=== PATIENT | male | born 1945 | race Caucasian/White ===

== ENCOUNTER → 2016-05-07 | Outpatient (CLI) | payer OTHER ==
[~2016-05-07] MED LIST: 5fu IV; ABRI IV; DOCU100C PO; GEMC1INJ IV; MULT-1027 PO; OMEP40CA41 PO; ONDA8TAB6 PO; OPTIRAY 320 IV PRN; OXYC-57 PO; RIVA1TAB4 PO; TRAMTAB5 PO; chemo IV.
--- NOTE | 2016-05-07 14:35 | DIAGNOSTIC IMAGING REPORT ---
CT OF THE ABDOMEN AND PELVIS WITH CONTRAST CLINICAL HISTORY: Pancreatic cancer. Restaging CT status post chemotherapy. COMPARISON STUDY: CT of the abdomen January 22, 2016 and MRI of the abdomen January 25, 2016. TECHNIQUE: Following IV administration of 119 mL of Optiray-320, axial images of the abdomen and pelvis were obtained from the lung bases to the proximal femurs. Images were reviewed in the axial, sagittal, and coronal planes. IV contrast was administered without complication. Oral contrast was administered. CT DOSE: 413.80 mGycm FINDINGS: Lung bases are clear. There is suspected fatty infiltration of the liver. The hepatic lesions shown on prior CT and MRI are not evident on this exam. There are calcified granulomas within the spleen. The adrenal glands are unremarkable. No biliary or pancreatic ductal dilatation is identified. Gallbladder wall thickening is a nonspecific finding. The size of the previously described mass within the pancreatic head extending into the pancreaticoduodenal groove is similar to prior exam. This mass measures approximately 3.6 x 2.9 cm. Multiple necrotic peripancreatic and leticia hepatis lymph nodes are similar to prior exam as well. A index peripancreatic node measures 2.9 x 2 cm. This lymphadenopathy abuts the superior mesenteric artery. The superior mesenteric vein and portal vein are patent. There may be mild narrowing of the main portal vein. The right and left portal veins are patent. No pelvic lymphadenopathy is present. There is sigmoid diverticulosis without evidence for acute diverticulitis. No suspicious osseous lesions are present. The prostate is moderately enlarged. The appendix is normal. No omental nodules are identified. IMPRESSION: 1. Findings suggestive of a partial treatment response. The previously described hepatic metastases are not evident on this exam consistent with a treatment response. The primary lesion within the pancreatic head and associated peripancreatic and leticia hepatis lymphadenopathy is similar to prior CT of January 22, 2016. No new sites of metastatic disease. 2. Mild gallbladder wall thickening, a nonspecific finding. Electronically signed by: Haris Stacy M.D. 05/07/2016 2:34 PM Dictated Date/Time: 05/07/2016 1:42 PM
== END | disposition home or self-care (01) ==
LOC: C.CTS 12:58
PROVIDERS: ATTEND Internal Medicine Hematology & Oncology
DX: C25.0 Malignant neoplasm of head of pancreas (principal)

== ENCOUNTER → 2016-05-21 | Outpatient (CLI) | payer OTHER ==
[~2016-05-21] MED LIST changes: +MAGNEVIST IV PRN; -OPTIRAY 320 IV PRN
--- NOTE | 2016-05-21 18:47 | DIAGNOSTIC IMAGING REPORT ---
ABDOMINAL MRI WITH AND WITHOUT INTRAVENOUS CONTRAST HISTORY: METASTATIC PANCREATIC CANCER TECHNIQUE: Multiplanar multisequence MRI of the abdomen was performed both before and after the intravenous administration of contrast per COMPARISON STUDY: Abdominal MRI 01/25/2016. Abdomen and pelvis CT 05/07/2016 FINDINGS: The necrotic peripancreatic lymph nodes have slightly increased in size. Dominant anterior peripancreatic lymph node measures 1.9 x 1.5 cm. This previous measured 1.7 x 1.1 cm. Dominant posterior peripancreatic lymph node measures 2.7 x 1.3 cm, previous measuring 2.3 x 1.4 cm. Pancreatic head mass has slightly decreased in size and currently measures 2.2 x 1.2 cm. This previous measured 2.6 x 2.1 cm. The main portal vein remains patent. Multiple hepatic lesions have decreased in size and number compared to the prior study. Dominant lesion within the right hepatic lobe on image 46 of 92 measures 7 mm, previous measuring 1 cm. The spleen and adrenal glands are unremarkable. Bilateral renal cysts are again noted. The gallbladder is unremarkable. Narrowing of the distal common bile duct and main pancreatic duct is again noted. This is likely due to combination of the pancreatic head mass and peripancreatic lymphadenopathy. Trace pericholecystic fluid which may be reactive. No gallstones identified. IMPRESSION: 1. Slight decrease in size in the pancreatic head mass. In addition, the metastatic hepatic lesions have decreased in size and number. 2. The peripancreatic necrotic lymphadenopathy has slightly increased in size. 3. Persistent narrowing of the distal common bile duct and distal main pancreatic duct. Electronically signed by: Kuldip Bradley M.D. 05/21/2016 6:46 PM Dictated Date/Time: 05/21/2016 6:31 PM
== END | disposition home or self-care (01) ==
LOC: C.MRI 17:41
PROVIDERS: ATTEND Internal Medicine Hematology & Oncology
DX: C25.9 Malignant neoplasm of pancreas, unspecified (principal)

== ENCOUNTER → 2016-08-19 | Outpatient (CLI) | payer OTHER ==
[~2016-08-19] MED LIST changes: +BACL10TA PO; +CHOL20009 PO; +GADOXETATE DISODIUM (NON-WT BASED PROCEDURE) IV PRN; -MAGNEVIST IV PRN; +MIRT15TA PO; +MORP-157 PO; +PANCCAP2 PO; +PROC5TAB PO; +[UNRECOGNIZED DRUG - CODE] IV; +[UNRECOGNIZED DRUG - CODE] IV
--- NOTE | 2016-08-20 08:38 | DIAGNOSTIC IMAGING REPORT ---
MRI OF THE ABDOMEN WITH AND WITHOUT CONTRAST CLINICAL HISTORY: Metastatic pancreatic carcinoma. Elevated liver function tests and cancer markers. Chemotherapy. COMPARISON STUDY: MRI of the abdomen May 21, 2016. TECHNIQUE: Utilizing a 1.5 Palmira magnet and dedicated coil, multiplanar, multiecho imaging of the abdomen was performed pre and postcontrast administration. Post contrast imaging was performed utilizing dynamic enhancement. Injection of 10 cc of Eovist IV was uneventful. FINDINGS: The previously described hepatic metastases shown on exam of May 21, 2016 have decreased in conspicuity since prior exam. The largest is a 6 mm hypervascular lesion shown on axial image 45 of 92 of the arterial phase sequence. There has been interval development of moderate biliary ductal dilatation with abrupt cut off of the proximal common bile duct. This has developed since MRI of May 21, 2016. The ill-defined pancreatic mass is difficult to measure on this exam but measures approximately 2.8 x 2.4 x 1.4 cm. This is relatively similar to prior exam of May 21, 2016. Adjacent pathologic peripancreatic lymph nodes have slightly increased in size since prior exam and could account for biliary ductal dilatation. There is no pancreatic ductal dilatation. A few renal cysts are noted. The spleen and adrenal glands are unremarkable. The main, left and right portal veins remain patent. There is been interval development of mild narrowing of the proximal main portal vein. IMPRESSION: 1. Interval development of moderate biliary ductal dilatation with abrupt caliber change of the proximal common bile duct. Slight increase in peripancreatic pathologic lymphadenopathy which may result in the biliary obstruction. 2. No significant change in the primary pancreatic lesion within the pancreatic head and uncinate process. 3. Slight decrease in size of several hepatic metastases. 4. Mild gallbladder distention. 5. Mild extrinsic narrowing of the proximal main portal vein which remains patent. Electronically signed by: Haris Stacy M.D. 08/20/2016 8:37 AM Dictated Date/Time: 08/20/2016 8:10 AM
== END | disposition home or self-care (01) ==
LOC: C.MRI 18:36
PROVIDERS: ATTEND Internal Medicine Hematology & Oncology
DX: R10.9 Unspecified abdominal pain (principal); C25.0 Malignant neoplasm of head of pancreas; K40.90 Unilateral inguinal hernia, without obstruction or gangrene, not specified as recurrent

== ENCOUNTER 2016-08-23 05:38 | Day surgery (SDC) | payer OTHER ==
[2016-08-21 11:09] VITALS: BMI 21.0
[~2016-08-23] VITALS: Ht 165.1 cm; Wt 59.1 kg
[~2016-08-23 05:38] MED LIST changes: -5fu IV; -ABRI IV; -BACL10TA PO; -CHOL20009 PO; -GADOXETATE DISODIUM (NON-WT BASED PROCEDURE) IV PRN; -GEMC1INJ IV; -MIRT15TA PO; -MORP-157 PO; -MULT-1027 PO; -PANCCAP2 PO; -PROC5TAB PO; -TRAMTAB5 PO; -[UNRECOGNIZED DRUG - CODE] IV; -[UNRECOGNIZED DRUG - CODE] IV; -chemo IV.
[2016-08-23 06:00] VITALS: BP 139/85; PULSE 83; TEMP 36.2; O2SAT 98; Ht 165.1 cm; Wt 59.1 kg
[2016-08-23] MEDS ORDERED: LACTATED RINGER'S 1000ML 1,000 ML IV SCH (06:00)
[2016-08-23] MEDS ORDERED: chemo IV. (06:12)
[2016-08-23] MEDS ORDERED: MULT-1027 PO (06:12)
[2016-08-23] MEDS ORDERED: 5fu IV (06:13)
[2016-08-23 06:14] LABS: HEMATOCRIT 37.5 % (42-52); MEAN CELL VOLUME 97.4 fL (80-100); MEAN CORPUSCULAR HEMOGLOBIN 32.2 pg (25-34); MEAN PLATELET VOLUME 10.2 fL (7.4-10.4); PLATELET COUNT 399 K/uL (130-400); RED BLOOD COUNT 3.85 M/uL (4.7-6.1); WHITE BLOOD COUNT 20.84 K/uL (4.8-10.8)
[2016-08-23 06:26] LABS: MEAN CORPUSCULAR HGB CONC 33.1 g/dl (32-36)
[2016-08-23] MEDS ORDERED: GEMC1INJ IV (06:28)
[2016-08-23] MEDS ORDERED: ABRI IV (06:28)
[2016-08-23] MEDS ORDERED: ROCURONIUM BROMIDE 10 MG/ML 5 ML VIAL ONE (06:35)
[2016-08-23] MEDS ORDERED: SUCCINYLCHOLINE CHLORIDE 20 MG/ML 10 ML VIAL IV ONE (06:35)
[2016-08-23] MEDS ORDERED: ONDANSETRON INJ 2 MG/ML 2 ML VIAL ONE (06:35)
[2016-08-23] MEDS ORDERED: LIDOCAINE HCL 2% 2 ML VIAL (20MG/ML) ONE (06:35)
[2016-08-23] MEDS ORDERED: DEXAMETHASONE SOD INJ 4 MG/ML VIAL ONE (06:35)
[2016-08-23] MEDS ORDERED: FENTANYL CITRATE INJ 50 MCG/1 ML 2 ML VIAL ONE ×2 (06:35→08:10)
[2016-08-23] MEDS ORDERED: PROPOFOL IV EMULSION 10 MG/ML 20 ML VIAL IV ONE ×2 (06:35→07:58)
[2016-08-23 06:37] LABS: BASO % 0.9 %; BASO ABS # 0.19 K/uL (0-0.2); COMPLETE YES; EOS % 1.7 %; IG% 8.5 %; LYMPH ABS # 1.46 K/uL (1.2-3.4); MONO % 13.5 %; NEUT % 68.4 %
[2016-08-23] MEDS ORDERED: MIDAZOLAM HCL 1 MG/ML 2ML VIAL ONE (06:55)
--- NOTE | 2016-08-23 07:22 | Endo History and Physical ---
History & Physical Date of Service: August 23, 2016. Chief Complaint: abnormal MR imaging Referring Physician: Past Surgical History Hx Cardiac Surgery: No Hx Abdominal Surgery: No Hx Post-Op Nausea and Vomiting: No Hx Cancer Surgery: No Hx Thoracic Surgery: No Hx Orthopedic: No Hx Urinary Tract Surgery: No Social History Smoking Status: Never Smoker Hx Substance Use: No Hx Alcohol Use: No Allergies Coded Allergies: Capecitabine (Verified Allergy, Mild, RASH, 08/23/16) Uncoded Allergies: TETANUS (Allergy, Severe, partially paralyzed, 01/26/16) Current Medications Reported Home Medications Medications Dose Route/Sig Max Daily Dose Days Date Category Dose Instructions Abraxane (Paclitaxel Protein-Bound) 100 Mg/20 Ml Inj IV DIRECTED 08/23/16 Reported Gemcitabine (Gemcitabine Hcl) 1 Gm/26.3 Ml Inj IV DIRECTED 08/23/16 Reported [5fu] IV DIRECTED 08/23/16 Reported Multi Vitamin (Multiple Vitamin) 1 Tab Tab 1 Tab PO DAILY 08/23/16 Reported Stool Softener (Docusate Sodium) 100 Mg Cap 100 Mg PO DAILY PRN 08/21/16 Reported Zofran (Ondansetron HCl) 8 Mg Tab 8 Mg PO BID PRN 08/21/16 Reported Percocet 5MG/325MG (Oxycodone/Acetaminophen) Tab 1 Tablet PO Q6H PRN 08/21/16 Reported PAIN Xarelto (Rivaroxaban) 20 Mg Tab 20 Mg PO HS 08/21/16 Reported HOLD 08/20 Prilosec (Omeprazole) 40 Mg Cap 40 Mg PO BID 08/21/16 Reported Vital Signs Weight (Kilograms): 59.09 Height (Feet): 5 Height (Inches): 5 Date Time Temp Pulse Resp B/P Pulse Ox O2 Delivery O2 Flow Rate FiO2 08/23/16 06:00 36.2 83 18 139/85 98 Room Air Physical Exam AAOX3 nl s1s2 Lungs CTA Abd soft NT/ND + BS - CCE Assessment and Plan ERCP with stent placement
[2016-08-23] MEDS ORDERED: EpHEDrine SULFATE INJ 50 MG/ML AMP IV PRN (08:15)
[2016-08-23] MEDS ORDERED: ESMOLOL HCL 10 MG/ML 10 ML VIAL ONE (08:15)
[2016-08-23] MEDS ORDERED: FENTANYL CITRATE INJ 50 MCG/1 ML 2 ML VIAL IV PRN (08:15)
[2016-08-23] MEDS ORDERED: ATROPINE SULFATE 0.1 MG/ML 5ML SYR IV PRN (08:15)
[2016-08-23] MEDS ORDERED: HYDROmorphone INJ 1 MG/ML SYR IV PRN (08:15)
[2016-08-23] MEDS ORDERED: LABETALOL HCL IV 5 MG/ML 20ML IV PRN (08:15)
[2016-08-23] MEDS ORDERED: ONDANSETRON INJ 2 MG/ML 2 ML VIAL IV PRN (08:15)
[2016-08-23] MEDS ORDERED: MEPERIDINE HCL 25 MG/ML CARP IV PRN (08:15)
[2016-08-23] MEDS ORDERED: INDOMETHACIN 50 MG SUPP PR ONE (08:19)
[2016-08-23] MEDS ORDERED: CIPROFLOXACIN 400MG / 200ML D5W ONE (08:52)
--- NOTE | 2016-08-23 09:30 | Discharge Instructions ---
Endoscopy Patient Instructions Date / Procedure(s) Performed August 23, 2016. Allergy Information Coded Allergies: Tetanus Toxoid (Verified Allergy, Severe, PARTIALLY PARALYZED, 08/23/16) Capecitabine (Verified Allergy, Mild, RASH, 08/23/16) Discharge Date / Findings August 23, 2016. distal CBD stricture Medication Instructions Restart Stopped Medication(s): Reported Home Medications Medications Dose Route/Sig Max Daily Dose Days Date Category Dose Instructions Abraxane (Paclitaxel Protein-Bound) 100 Mg/20 Ml Inj IV DIRECTED 08/23/16 Reported Gemcitabine (Gemcitabine Hcl) 1 Gm/26.3 Ml Inj IV DIRECTED 08/23/16 Reported [5fu] IV DIRECTED 08/23/16 Reported Multi Vitamin (Multiple Vitamin) 1 Tab Tab 1 Tab PO DAILY 08/23/16 Reported Stool Softener (Docusate Sodium) 100 Mg Cap 100 Mg PO DAILY PRN 08/21/16 Reported Zofran (Ondansetron HCl) 8 Mg Tab 8 Mg PO BID PRN 08/21/16 Reported Percocet 5MG/325MG (Oxycodone/Acetaminophen) Tab 1 Tablet PO Q6H PRN 08/21/16 Reported PAIN Xarelto (Rivaroxaban) 20 Mg Tab 20 Mg PO HS 08/21/16 Reported HOLD 08/20 Prilosec (Omeprazole) 40 Mg Cap 40 Mg PO BID 08/21/16 Reported Cipro 500mg twice daily x 5 days Reported Home Medications Medications Dose Route/Sig Max Daily Dose Days Date Category Dose Instructions Abraxane (Paclitaxel Protein-Bound) 100 Mg/20 Ml Inj IV DIRECTED 08/23/16 Reported Gemcitabine (Gemcitabine Hcl) 1 Gm/26.3 Ml Inj IV DIRECTED 08/23/16 Reported [5fu] IV DIRECTED 08/23/16 Reported Multi Vitamin (Multiple Vitamin) 1 Tab Tab 1 Tab PO DAILY 08/23/16 Reported Stool Softener (Docusate Sodium) 100 Mg Cap 100 Mg PO DAILY PRN 08/21/16 Reported Zofran (Ondansetron HCl) 8 Mg Tab 8 Mg PO BID PRN 08/21/16 Reported Percocet 5MG/325MG (Oxycodone/Acetaminophen) Tab 1 Tablet PO Q6H PRN 08/21/16 Reported PAIN Xarelto (Rivaroxaban) 20 Mg Tab 20 Mg PO HS 5/24/17 Reported HOLD 08/20 Prilosec (Omeprazole) 40 Mg Cap 40 Mg PO BID 08/21/16 Reported Cipro 500mg twice daily x 5 days Provider Instructions Activity Restrictions - No exercising or heavy lifting for 24 hours. - Do not drink alcohol the day of the procedure. - Do not drive a car or operate machinery until the day after the procedure. - Do not make any important decisions or sign important papers in 24 hours after the procedure. Following Day: - Return to full activity which may include returning to work/school. Diet Start your diet with liquids and light foods (jello, soup, juice, toast). Then eat your usual diet if not nauseated. Treatment For Common After Affects For mild abdominal pain, bloating, or excessive gas: - Rest - Eat lightly - Lie on right side Follow-Up Information Follow-up with as scheduled Anesthesia Information What You Should Know You have had a procedure that required some medicine to reduce anxiety and discomfort. This treatment is called moderate sedation. After receiving the treatment, you may be sleepy, but you will be able to breathe on your own. The effects of the treatment may last for several hours. Follow these instructions along with Activity/Diet recommendations noted above: * Do NOT do anything where dizziness or clumsiness would be dangerous. * Rest quietly at home today, then you can be up and about tomorrow. * Have a responsible person stay with you the rest of today. * You may have had an I.V. today. If so, you may take the dressing off later today. Recommendations Call your doctor if: * Trouble breathing * Continuous vomiting for more than 24 hours * Temperature above 101 degrees * Severe abdominal pain or bloating * Pain not relieved by pain medicine ordered * There is increased drainage or redness from any incision * A large amount of rectal bleeding greater than 2-3 tablespoons. (If you had a polyp/s removed or have hemorrhoids, a small amount of blood - from the rectum is to be expected.) * You have any unanswered questions or concerns. IN THE EVENT OF A SERIOUS EMERGENCY, GO TO THE NEAREST EMERGENCY ROOM Your discharge instructions were prepared by provider Jaspreet Dey. Patient Instructions Signature Page Neel Johnson Patient (or Guardian) Signature/Date: I have read and understand the instructions given to me by my caregivers. Caregiver/RN/Doctor Signature/Date: The above-named patient and/or guardian has received patient instructions on this date. + Original Patient Signature Page (only) stays with chart. Please make copy for patient.
--- NOTE | 2016-08-23 10:14 | DIAGNOSTIC IMAGING REPORT ---
ERCP BILIARY DUCTAL CLINICAL HISTORY: EXPLORATION OF DUCTSERCP COMPARISON STUDY: CT dated 08/20/2016 FLUOROSCOPY TIME: 7 minutes 50 seconds. FINDINGS: Retrograde opacification of the common duct demonstrates an area of stenotic change at the level of the distal common duct. This is followed by retrograde passage of a guidewire followed by placement of a distal common mild duct stent. No evidence for contrast extravasation. IMPRESSION: Successful placement of a distal common bile duct stent. Electronically signed by: Ulises Norton M.D. 08/23/2016 10:13 AM Dictated Date/Time: 08/23/2016 10:12 AM
[2016-08-23 10:25] VITALS: BP 137/78; PULSE 63; TEMP 36.5; O2SAT 96
--- NOTE | 2016-08-23 10:25 | GI REPORT ---
Procedure Date: 08/23/2016 7:43 AM Procedure: ERCP Indications: Abnormal MRCP, Elevated alkaline phosphatase Medicines: Propofol per Anesthesia, Cipro 400 mg IV, Indocin 50mg x two WA during procedure Complications: No immediate complications. Estimated blood loss: Minimal. Estimated Blood Loss: Estimated blood loss was minimal. Procedure: Pre-Anesthesia Assessment: - Prior to the procedure, a History and Physical was performed, and patient medications and allergies were reviewed. The patient's tolerance of previous anesthesia was also reviewed. The risks and benefits of the procedure and the sedation options and risks were discussed with the patient. All questions were answered, and informed consent was obtained. Prior Anticoagulants: The patient has taken Xarelto (rivaroxaban), last dose was 3 days prior to procedure. ASA Grade Assessment: III - A patient with severe systemic disease. After reviewing the risks and benefits, the patient was deemed in satisfactory condition to undergo the procedure. After obtaining informed consent, the scope was passed under direct vision. Throughout the procedure, the patient's blood pressure, pulse, and oxygen saturations were monitored continuously. The Scope was introduced through the mouth, and advanced to the duodenum and used to inject contrast into the bile duct. The ERCP was accomplished without difficulty. The patient tolerated the procedure well. Findings: The vegetable handler film was normal. The scope was advanced to a normal major papilla in the descending duodenum. Examination of the pharynx, larynx and associated structures, and upper GI tract was normal. The major papilla was bulging. The bile duct could not be cannulated with the short-nosed traction sphincterotome and 3-4-5 taper-tip cannula. A 2 mm biliary sphincterotomy was made with a pre-cut sphincterotome using ERBE electrocautery. There was no post-sphincterotomy bleeding. A straight Tracer wire was passed into the biliary tree. The biliary sphincterotomy was extended to a total of 4 mm in length with a short-tip traction sphincterotome using ERBE electrocautery. There was no post-sphincterotomy bleeding. Contrast was injected into the biliary tree. I personally interpreted the bile duct images. Ductal flow of contrast was adequate. Image quality was adequate. Contrast extended to the entire biliary tree. Opacification of the lower third of the main bile duct was successful. The maximum diameter of the ducts was 4 mm. The middle third of the main bile duct contained a single severe stenosis 10 mm in length. The middle third of the main bile duct, upper third of the main bile duct, left main hepatic duct, left intrahepatic branches, right main hepatic duct and right intrahepatic branches were moderately dilated, secondary to a stricture. The largest diameter was 15 mm. One 10 mm by 6 cm covered metal biliary stent with no external flaps and no internal flaps was placed 5.5 cm into the common bile duct. Bile flowed through the stent. The stent was in good position. The upper GI tract was traversed under direct vision without detailed examination. The entire examined stomach was normal. The upper GI tract was traversed under direct vision without detailed examination. A medium-sized infiltrative and ulcerated mass with no bleeding was found in the first part of the duodenum and in the second part of the duodenum. Impression: - The major papilla appeared to be bulging. - A sphincterotomy was performed. - A sphincterotomy was performed. 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 - The upper third of the main bile duct, middle third of the main bile duct, left main hepatic duct, right main hepatic duct, right intrahepatic branches and left intrahepatic branches were moderately dilated, secondary to a stricture. - One covered metal biliary stent was placed into the common bile duct. Prompt drainage occured. - Normal stomach. 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 - Comment: Unable to cannulate initially with Omniome and 5-4-3 catheter. Successful cannulation achieved with precut sphincterotomy followed by wire probing into distal CBD. The duodenal offered mild/moderate resistance to passage of side viewer but was achieved. The first 10x60 mm fully covered stent would not deploy secondary to device malfunction. A second stent was successfully deployed with prompt drainage. The PD was neither instrumented nor opacified. No samples taken. The stomach did not contain retained gastric contents ( currently no evidence for GOO) however pt has had some early satiety with altered taste. Recommendation: - Discharge patient to home (ambulatory). - Advance diet as tolerated. - Cipro (ciprofloxacin) 500 mg PO BID for 5 days. - The patient should not require a repeat ERCP. MD Jaspreet Santos MD 08/23/2016 10:25:31 AM This report has been signed electronically. Note Initiated On: 08/23/2016 7:43 AM I attest to the content of the Intraoperative Record and orders documented therein, exceptions below
--- NOTE | 2016-08-23 10:48 | Anesthesiology Progress Note ---
Anesthesia Post Op Note Date & Time August 23, 2016 at 10:47 Vital Signs Pain Intensity: 0 Vital Signs Past 12 Hours Date Time Temp Pulse Resp B/P Pulse Ox O2 Delivery O2 Flow Rate FiO2 08/23/16 10:25 36.5 63 20 137/78 96 Room Air 0 08/23/16 10:10 36.0 68 20 119/73 95 Room Air 08/23/16 10:00 60 18 119/71 97 Room Air 08/23/16 09:50 65 18 145/79 100 Mask 10 08/23/16 09:40 60 20 120/72 100 Mask 10 08/23/16 09:34 36.0 55 19 133/70 99 Mask 10 08/23/16 06:00 36.2 83 18 139/85 98 Room Air Notes Mental Status: alert / awake / arousable, participated in evaluation Pt Amnestic to Procedure: Yes Nausea / Vomiting: adequately controlled Pain: adequately controlled Airway Patency, RR, SpO2: stable & adequate BP & HR: stable & adequate Hydration State: stable & adequate Anesthetic Complications: no major complications apparent
[2016-08-23 10:55] VITALS: BP 125/76; PULSE 64; O2SAT 96
[2016-08-23 11:10] VITALS: BP 129/76; PULSE 65; TEMP 36.7; O2SAT 94
== END 2016-08-23 11:41 | disposition home or self-care (01) ==
LOC: C.ACU 05:38
PROVIDERS: ATTEND Internal Medicine Gastroenterology
DX: K83.1 Obstruction of bile duct (principal); R93.3 Abnormal findings on diagnostic imaging of other parts of digestive tract

== ENCOUNTER → 2016-10-29 | Outpatient (CLI) | payer OTHER ==
[~2016-10-29] MED LIST changes: +5fu IV; +ABRI IV; +BACL10TA PO; +CHOL20009 PO; +GEMC1INJ IV; +MIRT15TA PO; +MORP-157 PO; +MULT-1027 PO; +OPTIRAY 320 IV PRN; +PANCCAP2 PO; +PROC5TAB PO; +[UNRECOGNIZED DRUG - CODE] IV; +[UNRECOGNIZED DRUG - CODE] IV
--- NOTE | 2016-10-29 08:06 | DIAGNOSTIC IMAGING REPORT ---
(CHEST) THORAX WITH CT DOSE: 474.40 mGy.cm HISTORY: Pain ABD PAIN, PANCREATIC CANCER TECHNIQUE: Multiaxial CT images of the chest were performed following the intravenous administration of contrast. A dose lowering technique was utilized adhering to the principles of ALARA. COMPARISON: None. FINDINGS: The lungs are clear 2 mm low suspicion nodule left lower lobe transaxial image 142. No additional pulmonary nodularity is seen. Several calcified hilar and/or mediastinal granulomas. No pathologic adenopathy is appreciated. Mild abscess chronic change thoracic aorta area mild degenerative change of thoracic spine with no lytic or blastic process. Small sclerotic density right posterior fourth rib possibly secondary to old trauma. Osseous structures otherwise are unremarkable. IMPRESSION: 1. No significant abnormality of the chest. 2. 2 mm low suspicion nodule mid left lower lobe transaxial image 142. 3. Small sclerotic focus posterior right fourth rib of low suspicion given the absence of additional findings. 4. Study is otherwise normal Please refer to below summary of Fleischner criteria recommendations for follow-up of incidental CT nodules (Naomie Desai, Guidelines for management of small pulmonary nodules detected on CT scans: A statement from the Fleischner Society, Radiology 237: [id number].) SOLID NODULES Solitary nodule size: <6 mm * low risk patients: no follow-up needed * high risk patients: optional CT at 12 months Solitary nodule size: 6-8 mm * low risk patients: follow-up at 6-12 months, then consider further follow-up at 18-24 months * high risk patients: initial follow-up CT at 6-12 months and then at 18-24 months if no change Solitary nodule size: >8 mm * either low or high risk patients - consider follow-up CT at 3 months, and/or CT-PET, and/or biopsy Multiple nodules size: <6 mm * low risk patients: no routine follow-up * high risk patients: optional CT at 12 months Multiple nodules size: 6-8 mm * low risk patients: follow-up at 3-6 months, then consider further follow-up at 18-24 months * high risk patients: follow-up at 3-6 months, then at 18-24 months if no change Multiple nodules size: >8 mm * low risk patients: follow-up at 3-6 months, then consider further follow-up at 18-24 months * high risk patients: follow-up at 3-6 months, then at 18-24 months if no change Note: newly detected indeterminate nodule in persons 35 years of age or older. * Low risk patients: minimal or absent history of smoking and/or other known risk factors * high risk patients: history of smoking or of other known risk factors (e.g. first degree relative with lung cancer, or exposure to asbestos, radon, uranium) * if a nodule up to 8 mm is partly solid or is ground glass further follow-up is required after 24 months to exclude possible slow growing adenocarcinoma (SAGE) SUBSOIL NODULES Solitary pure ground-glass nodule * nodule size <6 mm - no CT follow-up required * nodule size >=6 mm - follow-up CT at 6-12 months, then every 2 years until 5 years Solitary part-solid nodule * nodule size <6 mm - no CT follow-up required * nodule size >=6 mm - follow-up CT at 3-6 months. If unchanged, and solid component remains <6 mm, then annual follow-up for 5 years Multiple subsolid nodules * nodule size <6 mm - follow-up CT at 3-6 months, consider further follow-up at 2 and 4 years if stable * nodule size >=6 mm - follow-up CT at 3-6 months, subsequent management based on the most suspicious nodule(s) The above report was generated using voice recognition software. It may contain grammatical, syntax or spelling errors. Electronically signed by: Ulises Norton M.D. 10/29/2016 8:05 AM Dictated Date/Time: 10/29/2016 7:55 AM
--- NOTE | 2016-10-29 08:11 | DIAGNOSTIC IMAGING REPORT ---
CT ABD/PELVIS IV AND ORAL CONT CLINICAL HISTORY: ABD PAIN, PANCREATIC CANCER COMPARISON STUDY: May 07, 2016, MRI of the liver dated 08/19/2016 TECHNIQUE: Following the IV administration of 92 mL of Optiray-320, CT scan of the abdomen and pelvis was performed from the lung bases to the proximal femurs. Images are reviewed in the axial, sagittal, and coronal planes. IV contrast was administered without complication. A dose lowering technique was utilized adhering to the principles of ALARA. CT DOSE: FINDINGS: Lower chest: The heart is normal in size and configuration, without pericardial effusion. The lung bases and pleural spaces are clear. Liver: There is a 7 mm hypodense focus within the right lobe of the liver superiorly. This was not visualized with certainty on the prior study. There is an indwelling biliary enteric stent. There are upper abdominal varices. Gallbladder: There is persistent gallbladder wall thickening/edema. Spleen: There is scattered splenic granulomatous calcifications. Pancreas: There is an enlarging uncinate process mass measuring 4.6 x 3.4 cm. There is persistent superior mesenteric vascular encasement. There are enlarging peripancreatic nodules including a 3.5 cm mass which appears to abut or invade the gastric antrum. There is a new 11 mm soft tissue nodule abutting the anterior inferior aspect of the pancreatic body. Adrenal glands: Unremarkable. Kidneys: Bilateral renal cysts remain stable. The largest measures 2 cm. Bowel: There are no transition zones indicate bowel obstruction. There is no evidence of acute appendicitis. There is no evidence of acute diverticulitis. Scattered colonic diverticula are present. There is gastric antral wall thickening. Peritoneum: No free air is visualized. There is a small amount of pelvic ascites present. There is small fat-containing right inguinal hernia. Vasculature: The abdominal aorta is normal in course and caliber. Adenopathy: There are pathologic upper abdominal peripancreatic lymph nodes. There is no pathologic pelvic lymphadenopathy. Pelvic viscera: There is mild prostatic enlargement. Skeletal structures: There is a stable synovial herniation pit within the left femoral neck. A few scattered sclerotic lesions likely represent bone islands. IMPRESSION: 1. Enlarging pancreatic mass, with enlarging peripancreatic, aortocaval, and leticia hepatis lymphadenopathy. One of the masses abuts or invades the gastric antrum. 2. Indwelling biliary enteric stent 3. Subtle 7 mm hypodense lesion within the right hepatic lobe superiorly 4. Minimal pelvic ascites Electronically signed by: Jose Chase M.D. 10/29/2016 8:09 AM Dictated Date/Time: 10/29/2016 7:56 AM
== END | disposition home or self-care (01) ==
LOC: C.CTS 07:32
PROVIDERS: ATTEND Internal Medicine Hematology & Oncology
DX: C25.0 Malignant neoplasm of head of pancreas (principal); R10.9 Unspecified abdominal pain

== ENCOUNTER 2017-01-04 13:13 | Emergency (ER) | payer OTHER ==
[~2017-01-04] VITALS: Ht 167.6 cm; Wt 51.9 kg
[~2017-01-04 13:13] MED LIST changes: -BACL10TA PO; -CHOL20009 PO; -MIRT15TA PO; -MORP-157 PO; -OPTIRAY 320 IV PRN; -PANCCAP2 PO; -PROC5TAB PO; -[UNRECOGNIZED DRUG - CODE] IV; -[UNRECOGNIZED DRUG - CODE] IV
[2017-01-04 13:20] VITALS: Ht 167.6 cm; Wt 51.9 kg
[2017-01-04] MEDS ORDERED: SODIUM CHLORIDE 0.9% 500ML 500 ML IV STA (14:00)
[2017-01-04] MEDS ORDERED: ONDANSETRON INJ 2 MG/ML 2 ML VIAL IV STA (14:00)
[2017-01-04] MEDS ORDERED: BACLOFEN 10 MG TAB PO SCH (14:15)
[2017-01-04] MEDS ORDERED: PANTOprazole INJ 80 MG in DEXTROSE 5% 100ML IV SCH (14:15)
--- NOTE | 2017-01-04 14:23 | EMERGENCY ROOM VISIT NOTE ---
History Report prepared by Bang: Elida Burns Under the Supervision of: Dr. Ankit Nieves D.O. First contact with patient: 13:49 Chief Complaint: VOMITING Stated Complaint: VOMITING, COUGHING UP BLOOD, PANCREATIC CANCER Nursing Triage Summary: triage note; Pt has had intractable hiccups and coffee ground emesis since last night. pt is on xeralto. pt has hx of pancreatic cancer with mets. History of Present Illness The patient is a 71 year old male who presents to the Emergency Room with complaints of intermittent vomiting beginning 5 days ago. The patient states that he has metastatic pancreatic carcinoma and is currently on chemotherapy. He reports that his last treatment was 5 days ago. He notes that he normally has muscle pains and bad reactions to his chemotherapy but overnight after his treatment on Friday he developed intractable hiccups that caused him to vomit. The patient's daughter states that the patient was given Baclofen to relieve his hiccups but he currently still has them. She reports that 2 hours ago the patient began having coffee ground emesis and he has had 4 episodes since it began. The patient complains of hunger pains. He denies any abdominal pain, urinary symptoms, leg swelling. He states that his last normal bowel movement was this morning and though he normally has constipation, he has not taken Mirilax in a few days. He reports that his is on Xarelto preventatively for blood clots. He notes that he has not been able to keep fluids or food down. The patient states that he has a history of appendicitis and varices in his abdomen. He notes that he has not had a Whipple. The patient had a CT in October that showed enlarging pancreatic mass with one mass with abuts/invades the gastric antrum. Source of History: patient, family Onset: 5 days ago Position: other (global) Quality: other (vomiting) Timing: intermittent Associated Symptoms: No abdominal pain, No urinary symptoms Note: Pt complains of hiccups. He denies any leg swelling. Review of Systems See HPI for pertinent positives & negatives. A total of 10 systems reviewed and were otherwise negative. Past Medical & Surgical Medical Problems: (1) Pancreatic cancer Family History No pertinent family history stated. Social History Smoking Status: Never Smoker Marital Status: Housing Status: lives with family Occupation Status: retired Current/Historical Medications Scheduled Cholecalciferol (Vitamin D), 2,000 UNITS PO DAILY Filgrastim (Neupogen), Unknown Dose IV UD Irinotecan Hcl (Camptosar), Unknown Dose IV [id number] Mirtazapine (Remeron), 15 MG PO HS Morphine Cont Rel (Ms Contin), 15 MG PO HS Multiple Vitamin (Multi Vitamin), 1 TAB PO DAILY Omeprazole (Prilosec), 40 MG PO BID Pancrelipase (Lipase-Protease- (Pancreaze), 1 CAP PO BIDM Rivaroxaban (Xarelto), 20 MG PO HS [5fu], IV DIRECTED Scheduled PRN Baclofen (Lioresal), 10 MG PO TID PRN for HICCUPS Docusate Sodium (Stool Softener), 100 MG PO DAILY PRN for CONSTIPATION Ondansetron Hcl (Zofran), 8 MG PO BID PRN for Nausea Oxycodone/Acetaminophen 5MG/325MG (Percocet 5MG/325MG), 1 TABLET PO Q6H PRN for Pain Prochlorperazine Maleate (Compazine), 5 MG PO UD PRN for Nausea Allergies Coded Allergies: Tetanus Toxoid (Verified Allergy, Severe, PARTIALLY PARALYZED, 01/04/17) Capecitabine (Verified Allergy, Mild, RASH, 01/04/17) Physical Exam Vital Signs Date Time Temp Pulse Resp B/P (MAP) Pulse Ox O2 Delivery O2 Flow Rate FiO2 01/04/17 18:43 36.7 109 18 134/77 95 01/04/17 17:54 118 22 122/80 93 Room Air 01/04/17 16:15 117 18 125/69 98 Room Air 01/04/17 15:45 89 18 165/98 99 Room Air 01/04/17 15:09 103 01/04/17 13:20 36.9 127 18 120/73 100 Room Air Physical Exam GENERAL: alert, malnourished, cachectic, chronically ill appearing, no distress , non-toxic EYE EXAM: normal conjunctiva OROPHARYNX: no exudate, no erythema, lips, buccal mucosa, and tongue normal and mucous membranes are dry NECK: supple, no nuchal rigidity, no adenopathy, non-tender CHEST: Port located in the right chest wall LUNGS: Clear to auscultation. Normal chest wall mechanics HEART: no murmurs, S1 normal and S2 normal ABDOMEN: abdomen soft, non-tender, normo-active bowel sounds, no masses, no rebound or guarding. BACK: Back is symmetrical on inspection and there is no deformity, no midline tenderness, no CVA tenderness. SKIN: no rashes and no bruising UPPER EXTREMITIES: upper extremities are grossly normal. LOWER EXTREMITIES: No pitting edema. Calves are equal bilaterally NEURO EXAM: Normal sensorium, cranial nerves II-XII grossly intact, normal speech, no gross weakness of arms, no gross weakness of legs. Medical Decision & Procedures ER Provider Diagnostic Interpretation: Radiology results as stated below per my review and the radiologist's interpretation: ABD/PELVIS IV CONTRAST ONLY FINDINGS: Surgical clips or fiducial markers with adjacent subsegmental pleural-parenchymal scarring again seen within the medial basal segment right lower lobe. No new suspicious pulmonary nodules. Coronary arterial calcifications are noted. No pneumoperitoneum identified. 12 mm low attenuating lesion of the subcapsular posterior right hepatic lobe noted. No definite new hepatic lesions identified. Moderate pneumobilia is noted, greatest within the left hepatic lobe. Air is also present within the gallbladder fundus and also within the biliary stent. Soft tissue attenuation is again seen within the distal region of the biliary stent. Multiple calcified granulomas throughout the spleen redemonstrated compatible with prior granulomatous disease. There is thickening of the adrenal glands suggesting hyperplasia. Thickening of the gallbladder wall is noted, likely reactive. Low attenuating heterogeneous ill-defined mass of the uncinate process redemonstrated measuring approximately 4.7 x 4.9 cm, previously 4.6 x 3.4 cm. Again, this mass appears to be abutting and likely invading the adjacent gastric antrum and duodenum with ill-defined irregular mucosal margins within this distribution. There is now mild amount of intra-abdominal and intrapelvic ascites present, likely malignant. Necrotic gastrohepatic and periaortic lymph nodes are also present with gastrohepatic lymph nodes measuring up to 2.9 x 2.7 cm and periaortic lymph nodes measuring up to 5.0 x 3.8 cm on image 108 of series 3, previously measuring 4.9 x 3.7 cm on comparison study. There is marked distention of the stomach which is fluid filled. The distal esophagus demonstrates thickened sanchez and is also fluid-filled. Focal narrowing seen within the region of the gastric antrum at area of mass invasion as above. There is mucosal hyperemia with inflammatory stranding of the duodenum which is not significantly dilated. Fluid-filled loops of nondilated small bowel are seen throughout the abdomen and pelvis. Probable cysts of the kidneys redemonstrated. No renal calculi or hydronephrosis. Urinary bladder is distended. The prostate is enlarged. There is decreased luminal caliber without wall thickening extending from the mid transverse colon to the sigmoid colon. Sigmoid colon diverticula noted. Medication for acute inflammatory changes limited secondary to diffuse mesenteric edema. There is a nodularity involving the omentum as seen on images 151 of series 3, notably from left upper abdomen are suspicious for omental carcinomatosis. Additional foci are seen within the right upper abdomen on image 136 of series 3. No definite suspicious lytic or blastic bony lesion seen to suggest metastasis. Bones are mildly demineralized. IMPRESSION: 1. Large heterogeneous pancreatic head mass invades the gastric antrum and causes gastric outlet obstruction with marked distention of the fluid-filled stomach. 2. Bulky malignant periaortic, pericaval and gastrohepatic adenopathy redemonstrated. 3. Progressive abdominal ascites with areas of omental nodularity suggesting malignant ascites with omental carcinomatosis. 4. Pneumobilia with air tracking within along the biliary stent. 5. Wall thickening of the colon extending from the transverse colon to the rectosigmoid may reflect superimposed colitis or nondistention. 6. Additional incidental findings. The above report was generated using voice recognition software. It may contain grammatical, syntax or spelling errors. Electronically signed by: Cliff Alomnte M.D. 01/04/2017 4:21 PM Dictated Date/Time: 01/04/2017 4:00 PM Laboratory Results 01/04/17 14:28 Red Blood Count 4.16, Mean Corpuscular Volume 89.9, Mean Corpuscular Hemoglobin 30.0, Mean Corpuscular Hemoglobin Concent 33.4, Mean Platelet Volume 11.0, Neutrophils (%) (Auto) 94.7, Lymphocytes (%) (Auto) 1.4, Monocytes (%) (Auto) 1.9, Eosinophils (%) (Auto) 0.0, Basophils (%) (Auto) 0.2, Neutrophils # (Auto) 41.51, Lymphocytes # (Auto) 0.62, Monocytes # (Auto) 0.82, Eosinophils # (Auto) 0.00, Basophils # (Auto) 0.08 01/04/17 18:07 01/04/17 14:28 Test 01/04/17 14:28 01/04/17 16:09 White Blood Count 43.81 K/uL (4.8-10.8) Red Blood Count 4.16 M/uL (4.7-6.1) Hemoglobin 12.5 g/dL (14.0-18.0) Hematocrit 37.4 % (42-52) Mean Corpuscular Volume 89.9 fL (80-100) Mean Corpuscular Hemoglobin 30.0 pg (25-34) Mean Corpuscular Hemoglobin Concent 33.4 g/dl (32-36) Platelet Count 321 K/uL (130-400) Mean Platelet Volume 11.0 fL (7.4-10.4) Neutrophils (%) (Auto) 94.7 % Lymphocytes (%) (Auto) 1.4 % Monocytes (%) (Auto) 1.9 % Eosinophils (%) (Auto) 0.0 % Basophils (%) (Auto) 0.2 % Neutrophils # (Auto) 41.51 K/uL (1.4-6.5) Lymphocytes # (Auto) 0.62 K/uL (1.2-3.4) Monocytes # (Auto) 0.82 K/uL (0.11-0.59) Eosinophils # (Auto) 0.00 K/uL (0-0.5) Basophils # (Auto) 0.08 K/uL (0-0.2) RDW Standard Deviation 53.0 fL (36.4-46.3) RDW Coefficient of Variation 16.5 % (11.5-14.5) Immature Granulocyte % (Auto) 1.8 % Immature Granulocyte # (Auto) 0.78 K/uL (0.00-0.02) Hypersegmented Polys 1+ Dohle Bodies 1+ Platelet Estimate NORMAL Prothrombin Time 14.1 SECONDS (9.0-12.0) Prothromb Time International Ratio 1.3 (0.9-1.1) Activated Partial Thromboplast Time 29.4 SECONDS (21.0-31.0) Partial Thromboplastin Ratio 1.1 Anion Gap 12.0 mmol/L (3-11) Est Creatinine Clear Calc Drug Dose 48.8 ml/min Estimated GFR () 87.2 Estimated GFR (Non- 75.2 BUN/Creatinine Ratio 23.5 (10-20) Calcium Level 9.5 mg/dl (8.5-10.1) Total Bilirubin 0.5 mg/dl (0.2-1) Direct Bilirubin 0.2 mg/dl (0-0.2) Aspartate Amino Transf (AST/SGOT) 7 U/L (15-37) Alanine Aminotransferase (ALT/SGPT) 18 U/L (12-78) Alkaline Phosphatase 150 U/L (45-117) Total Protein 6.5 gm/dl (6.4-8.2) Albumin 3.4 gm/dl (3.4-5.0) Lipase 77 U/L (73-393) Urine Color YELLOW Urine Appearance CLEAR (CLEAR) Urine pH 8.5 (4.5-7.5) Urine Specific [place] 1.010 (1.000-1.030) Urine Protein NEG (NEG) Urine Glucose (UA) NEG (NEG) Urine Ketones TRACE (NEG) Urine Occult Blood NEG (NEG) Urine Nitrite NEG (NEG) Urine Bilirubin NEG (NEG) Urine Urobilinogen NEG (NEG) Urine Leukocyte Esterase NEG (NEG) Urine WBC (Auto) 1-5 /hpf (0-5) Urine RBC (Auto) 5-10 /hpf (0-4) Urine Hyaline Casts (Auto) 0 /lpf (0-5) Urine Epithelial Cells (Auto) >30 /lpf (0-5) Urine Bacteria (Auto) NEG (NEG) Urine Renal Epithelial Cells /lpf (0-5) Urine Crystals CALCIUM OXALATE (NONE Urine Pathogenic Casts /lpf (0) Laboratory results per my review. Medications Administered Medications (Trade) Dose Ordered Sig/Loan Route Start Time Stop Time Status Last Admin Dose Admin Sodium Chloride 500 ml @ 999 mls/hr Q31M STAT IV 01/04/17 14:00 01/04/17 14:30 DC 01/04/17 15:06 999 MLS/HR Ondansetron HCl (Zofran Inj) 4 mg NOW STAT IV 01/04/17 14:00 01/04/17 14:03 DC 01/04/17 15:19 4 MG Pantoprazole Sodium 80 mg/ Dextrose 120 ml @ 480 mls/hr TODAY@1415 IV 01/04/17 14:15 01/04/17 14:29 DC 01/04/17 15:06 480 MLS/HR Pantoprazole Sodium 40 mg/ Dextrose 100 ml @ 20 mls/hr Q5H IV 01/04/17 14:30 01/04/17 19:29 DC 01/04/17 15:06 20 MLS/HR Baclofen (Lioresal Tab) 10 mg NOW PO 01/04/17 14:15 01/04/17 19:57 DC 01/04/17 15:19 10 MG Piperacillin Sod/ Tazobactam Sod (Zosyn Iv) 4.5 gm NOW STAT IV 01/04/17 16:25 01/04/17 16:26 DC 01/04/17 16:25 4.5 GM Heparin Sodium (Porcine) (Heparin 10 Unit/ ml 5 ml Flush) 5 ml STK-MED ONCE .ROUTE 01/04/17 16:47 01/04/17 16:48 DC 01/04/17 16:47 5 ML Sodium Chloride 1,000 ml @ 999 mls/hr Q1H1M STAT IV 01/04/17 17:56 01/04/17 18:56 DC 01/04/17 17:56 999 MLS/HR Heparin Sodium (Porcine) (Heparin 100 Unit/ml 5ml Flush) 5 ml STK-MED ONCE .ROUTE 01/04/17 17:56 01/04/17 17:57 DC 01/04/17 17:56 5 ML ED Course ED COURSE: Vital signs were reviewed and showed tachycardia The patients medical record was reviewed The above diagnostic studies were performed and reviewed. ED treatments and interventions as stated above. 1349: The patient was evaluated in room B9. A complete history and physical examination was performed. 1400: Protonix IV Bolus/Drip Iea IV, Zofran Inj 4mg IV, Sodium Chloride 500 ml @ 999 mls/hr IV. 1415: Pantoprazole Sodium 80mg/Dextrose 120ml @ 480mls/hr IV. 1430: Pantoprazole Sodium 40mg/Dextrose 100ml @ 20mls/hr IV. 1445: I spoke to the patient and his family. They report that he has two IDs. 1548: I reevaluated the patient and he is doing well. His heart rate is in the 80s. 1635: I discussed the patients case with Dr. Rosales of Surgery. She will come to evaluate the patient. 1640: I spoke to Dr. Hill. He agrees with MG tube admitting to medicine. 1644: I spoke to the patient's family and they would like me to talk to surgical oncology at [place]. 1625: Zosyn IV 4.5gm IV. 1715: I updated the patients family and pulled up the CT images for the patients . 1730: I spoke to surgical oncology at [place]. He is uncertain of what they would offer at this time but they are willing to see the patient and evaluate him. 1756: Sodium Chloride 1000 ml @ 999 mls/hr IV. 1801: I spoke to Dr. Taylor. He doesnt recommend reversal as he is on a 10A inhibitor. 1800: I spoke to Dr. Aguero of [place], he will be accepting the patient and evaluating him for further care. 1822: I called down to blood blank, they state they did not perform a type and cross. Per hospital policy, the blood was only typed and screened. 185: Upon reevaluation, the patient is doing well.I discussed my findings with the patient and he understands and agrees with the treatment plan. Based on the patients age, coexisting illnesses, exam and lab findings the decision to treat as an inpatient transfer was made. The patient remained stable while under my care. The patient will be evaluated for further management. Medical Decision Differential diagnoses includes but is not limited to gastritis, peptic ulcer disease, GERD, gallbladder disease, pancreatitis, small bowel obstruction, acute coronary syndrome, pericarditis, ischemic bowel, irritable bowel disease, irritable bowel syndrome, appendicitis, diverticulitis, malignancy, hernia, urinary tract infection, torsion, perforation, trauma, infectious. Patient is a 71-year-old male with a past medical history of pancreatic cancer that last received chemotherapy on Friday who presents to the ER for intractable hiccups associated with a coffee-ground emesis. He has had for bouts of coffee-ground emesis at home. Patient has no pain at this time. He has the hiccups that are very bothersome. Vitals are remarkable for a tachycardia. Abdominal exam is benign. Port was accessed along with two additional IVs that were placed. CT of the abdomen/pelvis shows cancer eroding into the antrum of his stomach causing a gastric outlet obstruction. NG tube was placed in over a liter of coffee-ground stomach contents was removed. At this time I did discuss case with my general surgeon and gastroenterology. We were in the process of admitting him at this time but they request to be transferred to [facility] as there may be additional options with his stage IV metastatic pancreatic cancer which is eroding into his stomach. Discussed with surgical oncology at [facility] on 2 separate occasions. He was accepted to the ICU. Patient was given and ordered 2 units of PRBCs. He was flown to [facility] as his heart rate remained in the 110's and had a large amount of coffee-ground emesis removed from the gastric outlet obstruction. Patient does take a Xa inhibitor. I discussed this with our assistant infant toddler teacher on-call. He last took this dose greater than 24 hours ago. As he has a normal renal function Dr. Pendleton felt that there is little to no benefit to giving four factor. Patient was updated at bedside and transferred to [facility] via [facility]. 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 Medication Reconcilliation Current Medication List: was personally reviewed by me Blood Pressure Screening Patient's blood pressure: Normal blood pressure Blood pressure disposition: Did not require urgent referral Consults Time Called: 1630 Consulting Physician: Dr. Rosales - Surgery Returned Call: 1635 I discussed the patients case with Dr. Rosales of Surgery. She will come to evaluate the patient. Additional Consults: Time Called: 1636 Consulted Physician: Dr. Hill - GI Returned Call: 1640 Additional Comments: I spoke to Dr. Hill. He agrees with MG tube admitting to medicine. Time Called: 1723 Consulted Physician: Surgical Oncolology Returned Call: 1730 Additional Comments: I spoke to surgical oncology at [place]. He is uncertain of what they would offer at this time but they are willing to see the patient and evaluate him. Impression Primary Impression: Upper GI bleed Additional Impressions: Gastric outlet obstruction Pneumobilia Pancreatic cancer Critical Care I have personally spent 75 minutes of critical care time in the direct management of this patient. This includes bedside care, interpretation of diagnostic studies, and testing, discussion with consultants, patient, and family members, and other required patient management activities. This 75 minutes is in excess of all separately billable procedures. Scribe Attestation The scribe's documentation has been prepared under my direction and personally reviewed by me in its entirety. I confirm that the note above accurately reflects all work, treatment, procedures, and medical decision making performed by me. Departure Information Dispostion Transfer Acute Care Facility Referrals Christian Alicea M.D. (PCP) Patient Instructions My [facility] Problem Qualifiers
[2017-01-04] MEDS ORDERED: PANTOprazole INJ 40 MG in DEXTROSE 5% 100ML IV SCH (14:30)
[2017-01-04] MEDS ORDERED: OPTIRAY 320 IV PRN (14:30)
[2017-01-04] MEDS ORDERED: [UNRECOGNIZED DRUG - CODE] IV (14:44)
[2017-01-04] MEDS ORDERED: [UNRECOGNIZED DRUG - CODE] IV (14:44)
[2017-01-04] MEDS ORDERED: MIRT15TA PO (14:47)
[2017-01-04] MEDS ORDERED: PANCCAP2 PO (14:47)
[2017-01-04] MEDS ORDERED: MORP-157 PO (14:47)
[2017-01-04] MEDS ORDERED: PROC5TAB PO (14:47)
[2017-01-04] MEDS ORDERED: CHOL20009 PO (14:47)
[2017-01-04] MEDS ORDERED: BACL10TA PO (14:49)
[2017-01-04 14:53] LABS: HEMATOCRIT 37.4 % (42-52); MEAN CELL VOLUME 89.9 fL (80-100); MEAN CORPUSCULAR HGB CONC 33.4 g/dl (32-36); RED BLOOD COUNT 4.16 M/uL (4.7-6.1); WHITE BLOOD COUNT 43.81 K/uL (4.8-10.8)
[2017-01-04 14:59] LABS: INR 1.3 (0.9-1.1); PARTIAL THROMBOPLASTIN RATIO 1.1; PROTHROMBIN TIME (PATIENT) 14.1 SECONDS (9.0-12.0)
[2017-01-04 15:02] LABS: BUN/CREATININE RATIO 23.5 (10-20); CALCIUM 9.5 mg/dl (8.5-10.1); CREATININE 0.99 mg/dl (0.60-1.40); POTASSIUM 3.3 mmol/L (3.5-5.1)
[2017-01-04 15:18] LABS: PLATELET COUNT 321 K/uL (130-400)
[2017-01-04 15:19] LABS: BASO % 0.2 %; BASO ABS # 0.08 K/uL (0-0.2); COMPLETE YES; DOHLE BODIES 1+; HYPERSEGMENTED POLYS 1+; IG% 1.8 %; LYMPH % 1.4 %; LYMPH ABS # 0.62 K/uL (1.2-3.4); MONO % 1.9 %; NEUT % 94.7 %; PLT ESTIMATE NORMAL
--- NOTE | 2017-01-04 16:23 | DIAGNOSTIC IMAGING REPORT ---
ABD/PELVIS IV CONTRAST ONLY HISTORY: 71 years-old Male hxt of cancer vomitigng acute vomiting with history of pancreatic carcinoma. COMPARISON: CT abdomen and pelvis 10/29/2016 TECHNIQUE: Multiple axial CT images of the abdomen and pelvis were obtained following the intravenous administration of 93 mL Optiray 320. A dose lowering technique was used consistent with the principals of MILI. FINDINGS: Surgical clips or fiducial markers with adjacent subsegmental pleural-parenchymal scarring again seen within the medial basal segment right lower lobe. No new suspicious pulmonary nodules. Coronary arterial calcifications are noted. No pneumoperitoneum identified. 12 mm low attenuating lesion of the subcapsular posterior right hepatic lobe noted. No definite new hepatic lesions identified. Moderate pneumobilia is noted, greatest within the left hepatic lobe. Air is also present within the gallbladder fundus and also within the biliary stent. Soft tissue attenuation is again seen within the distal region of the biliary stent. Multiple calcified granulomas throughout the spleen redemonstrated compatible with prior granulomatous disease. There is thickening of the adrenal glands suggesting hyperplasia. Thickening of the gallbladder wall is noted, likely reactive. Low attenuating heterogeneous ill-defined mass of the uncinate process redemonstrated measuring approximately 4.7 x 4.9 cm, previously 4.6 x 3.4 cm. Again, this mass appears to be abutting and likely invading the adjacent gastric antrum and duodenum with ill-defined irregular mucosal margins within this distribution. There is now mild amount of intra-abdominal and intrapelvic ascites present, likely malignant. Necrotic gastrohepatic and periaortic lymph nodes are also present with gastrohepatic lymph nodes measuring up to 2.9 x 2.7 cm and periaortic lymph nodes measuring up to 5.0 x 3.8 cm on image 108 of series 3, previously measuring 4.9 x 3.7 cm on comparison study. There is marked distention of the stomach which is fluid filled. The distal esophagus demonstrates thickened sanchez and is also fluid-filled. Focal narrowing seen within the region of the gastric antrum at area of mass invasion as above. There is mucosal hyperemia with inflammatory stranding of the duodenum which is not significantly dilated. Fluid-filled loops of nondilated small bowel are seen throughout the abdomen and pelvis. Probable cysts of the kidneys redemonstrated. No renal calculi or hydronephrosis. Urinary bladder is distended. The prostate is enlarged. There is decreased luminal caliber without wall thickening extending from the mid transverse colon to the sigmoid colon. Sigmoid colon diverticula noted. Medication for acute inflammatory changes limited secondary to diffuse mesenteric edema. There is a nodularity involving the omentum as seen on images 151 of series 3, notably from left upper abdomen are suspicious for omental carcinomatosis. Additional foci are seen within the right upper abdomen on image 136 of series 3. No definite suspicious lytic or blastic bony lesion seen to suggest metastasis. Bones are mildly demineralized. IMPRESSION: 1. Large heterogeneous pancreatic head mass invades the gastric antrum and causes gastric outlet obstruction with marked distention of the fluid-filled stomach. 2. Bulky malignant periaortic, pericaval and gastrohepatic adenopathy redemonstrated. 3. Progressive abdominal ascites with areas of omental nodularity suggesting malignant ascites with omental carcinomatosis. 4. Pneumobilia with air tracking within along the biliary stent. 5. Wall thickening of the colon extending from the transverse colon to the rectosigmoid may reflect superimposed colitis or nondistention. 6. Additional incidental findings. The above report was generated using voice recognition software. It may contain grammatical, syntax or spelling errors. Electronically signed by: Cliff Almonte M.D. 01/04/2017 4:21 PM Dictated Date/Time: 01/04/2017 4:00 PM
[2017-01-04] MEDS ORDERED: PIPERACILLIN/TAZOBACTAM 4.5 GM/100ML D5W IV STA (16:25)
[2017-01-04 17:09] LABS: URINE APPEARANCE CLEAR (CLEAR); URINE BILIRUBIN NEG (NEG); URINE COLOR YELLOW; URINE EPITHELIAL CELL AUTO >30 /lpf (0-5); URINE NITRITE NEG (NEG); URINE PH 8.5 (4.5-7.5); UROBILINOGEN NEG (NEG); ZZUR CULT IF INDIC CLEAN CATCH NO
[2017-01-04 17:31] LABS: MANUAL MICROSCOPIC REQUIRED? NO; REVIEW REQ? YES; SULFASALICYLIC ACID NEG (NEG)
[2017-01-04 17:54] VITALS: O2SAT 93
[2017-01-04] MEDS ORDERED: SODIUM CHLORIDE 0.9% 1000ML 1,000 ML IV STA (17:56)
[2017-01-04 18:43] VITALS: BP 134/77; PULSE 109; TEMP 36.7; O2SAT 95
== END 2017-01-04 19:01 | disposition short-term general hospital (02) ==
LOC: C.EDB 13:14
DX: K92.2 Gastrointestinal hemorrhage, unspecified (principal); K31.1 Adult hypertrophic pyloric stenosis; K83.8 Other specified diseases of biliary tract; C25.9 Malignant neoplasm of pancreas, unspecified; Z79.01 Long term (current) use of anticoagulants

== ENCOUNTER → 2017-02-07 | Outpatient (CLI) | payer OTHER ==
[~2017-02-07] MED LIST changes: -ABRI IV; +BACL10TA PO; +CHOL20009 PO; -GEMC1INJ IV; +MIRT15TA PO; +MORP-157 PO; +PANCCAP2 PO; +PROC5TAB PO; +[UNRECOGNIZED DRUG - CODE] IV; +[UNRECOGNIZED DRUG - CODE] IV
[2017-02-07 13:04] LABS: IG% 0.2 %; LYMPH % 8.7 %; LYMPH ABS # 0.81 K/uL (1.2-3.4); MEAN CELL VOLUME 88.1 fL (80-100); MEAN CORPUSCULAR HEMOGLOBIN 27.8 pg (25-34); MEAN CORPUSCULAR HGB CONC 31.5 g/dl (32-36); MEAN PLATELET VOLUME 10.8 fL (7.4-10.4); MONO % 9.2 %; NEUT % 80.9 %; PLATELET COUNT 333 K/uL (130-400); RED BLOOD COUNT 2.95 M/uL (4.7-6.1); WHITE BLOOD COUNT 9.31 K/uL (4.8-10.8)
[2017-02-07 13:28] LABS: COMPLETE YES; HYPOCHROMIA PRESENT; POIKILOCYTOSIS PRESENT; VACUOLIZATION 1+
[2017-02-07 13:52] LABS: ALT/SGPT 28 U/L (12-78); AST/SGOT 26 U/L (15-37); BLOOD UREA NITROGEN 44 mg/dl (7-18); BUN/CREATININE RATIO 41.5 (10-20); CALCIUM 8.7 mg/dl (8.5-10.1); CARBON DIOXIDE 29 mmol/L (21-32); CHLORIDE 101 mmol/L (98-107); CREATININE 1.05 mg/dl (0.60-1.40); GLUCOSE 106 mg/dl (70-99); MAGNESIUM 2.8 mg/dl (1.8-2.4); POTASSIUM 3.8 mmol/L (3.5-5.1); SODIUM 136 mmol/L (136-145)
[2017-02-07 13:55] LABS: ALB/GLOB RATIO 0.7 (0.9-2); ALKALINE PHOSPHATASE 94 U/L (45-117)
== END | disposition home or self-care (01) ==
LOC: C.LABMFLN 06:52
PROVIDERS: ATTEND Family Medicine
DX: C25.9 Malignant neoplasm of pancreas, unspecified (principal)